=== PATIENT | male | born 1970 | race Caucasian/White ===

== ENCOUNTER 2022-01-24 21:06 | Emergency (ER) | payer SELFPAY ==
[~2022-01-24 21:06] MED LIST: Sodium Chloride 0.9% 100 ML BAG ONE
[2022-01-24 22:05] LABS: #Basophils 0.2 thou/uL (0.0-0.2); #Eosinphils 0.1 thou/uL (0.0-0.7); #Lymphocytes 1.9 thou/uL (1.20-3.40); #Monocytes 1.8 thou/uL (0.11-0.59); #Neutrophils 12.9 thou/uL (1.40-6.50); %Basophils 1.4 % (0.0-1.0); %Eosinophils 0.5 % (0.0-10.0); %Lymphocytes 11.4 % (21.0-51.0); %Monocytes 10.5 % (0.0-10.0); %Neutrophils 76.3 % (42.0-75.0); Hemoglobin 14.8 g/dL (14.0-18.0); Mean Corpuscular Volume 88.4 fL (78.0-98.0); Mean Platelet Volume 8.5 fL (7.4-10.4); Platelet Count 331 thou/uL (130-400); RBC Distribution Width 10.3 % (11.5-14.5); White Blood Cell (WBC) Count 16.9 thou/uL (4.8-10.8)
[2022-01-24] MEDS ORDERED: Cefepime 2 GM VIAL ONE (22:09)
[2022-01-24] MEDS ORDERED: Ketorolac Tromethamine 30 MG/ML VIAL ONE (22:09)
[2022-01-24 22:26] LABS: ALT (SGPT) 26 U/L (8-55); AST (SGOT) 18 U/L (5-34); Albumin 3.8 g/dL (3.5-5.0); Alkaline Phosphatase 139 U/L (40-110); Anion Gap 18 mmol/L (10-20); BUN (Urea Nitrogen) 14 mg/dL (8.4-25.7); Bilirubin, Total 0.3 mg/dL (0.2-1.2); Calc. Creatinine Clearance 0 mL/min (70-130); Calcium 9.3 mg/dL (7.8-10.44); Carbon Dioxide 22 mmol/L (22-29); Chloride 100 mmol/L (98-107); Globulin 3.3 g/dL (2.4-3.5); Glucose 403 mg/dL (70-105); Potassium 4.5 mmol/L (3.5-5.1); Protein, Total 7.1 g/dL (6.0-8.3); Sodium 135 mmol/L (136-145)
[2022-01-24] MEDS ORDERED: Insulin Regular 300 UNITS/3 ML VIAL ONE (22:49)
[2022-01-24] MEDS ORDERED: Sodium Chloride 0.9% 1,000 ML ONE (22:50)
== END 2022-01-24 23:53 | disposition short-term general hospital (02) ==
LOC: MADERS 21:06
DX: J34.0 Abscess, furuncle and carbuncle of nose (principal); E11.65 Type 2 diabetes mellitus with hyperglycemia; I10 Essential (primary) hypertension; F17.210 Nicotine dependence, cigarettes, uncomplicated
CPT/HCPCS: 80053; 83605; 85025; 87040; 87070; 87077; 87186; 87205; 96365; 96367; 96375; J0692; J1815; J1885; J3370; J3490; J7050